=== PATIENT | female | born 1970 | race Native Hawaiian/Other Pacific Islander ===

== ENCOUNTER 2021-08-30 03:15 | Emergency (ER) | payer OTHER ==
[~2021-08-30] VITALS: Ht 177.8 cm; Wt 133.4 kg
[2021-08-30 04:50] VITALS: BP 110/68; TEMP 97.8
== END 2021-08-30 04:50 | disposition home or self-care (01) ==
LOC: ED 03:15
DX: S61.231A Puncture wound without foreign body of left index finger without damage to nail, initial encounter (principal); W61.01XA Bitten by parrot, initial encounter; Y92.89 Other specified places as the place of occurrence of the external cause
CPT/HCPCS: 90471; 90715; 99282

== ENCOUNTER 2022-03-17 10:00 | Emergency (ER) | payer OTHER ==
[~2022-03-17] VITALS: Ht 177.8 cm; Wt 129.7 kg
[2022-03-17 11:02] LABS: PLATELET COUNT 202 K/uL (152-353)
[2022-03-17 11:08] LABS: POTASSIUM 4.2 mmol/L (3.6-5.2)
[2022-03-17 12:34] VITALS: BP 128/88; TEMP 98.4
== END 2022-03-17 12:34 | disposition home or self-care (01) ==
LOC: ED 10:00
PROVIDERS: Family Medicine
DX: J40 Bronchitis, not specified as acute or chronic (principal); K59.09 Other constipation; R10.84 Generalized abdominal pain
CPT/HCPCS: 36415; 80053; 80307; 81002; 85027; 96360; 96374; 96375; 99284; J1885; J2765

== ENCOUNTER 2022-04-06 10:47 | Emergency (ER) | payer OTHER ==
[~2022-04-06] VITALS: Ht 177.8 cm; Wt 122.5 kg
[2022-04-06 11:47] LABS: PLATELET COUNT 244 K/uL (152-353)
[2022-04-06 14:30] VITALS: BP 128/78; TEMP 98.4
== END 2022-04-06 14:30 | disposition home or self-care (01) ==
LOC: ED 10:47
PROVIDERS: Emergency Medicine Emergency Medical Services
DX: R51.9 Headache, unspecified (principal)
CPT/HCPCS: 36415; 81025; 85027; 96374; 96375; 99284; J1885; J2270; J2405

== ENCOUNTER 2022-05-04 18:33 | Emergency (ER) | payer OTHER ==
[~2022-05-04] VITALS: Ht 177.8 cm; Wt 123.4 kg
[2022-05-04 18:38] VITALS: TEMP 98.4
[2022-05-04 19:50] LABS: PLATELET COUNT 221 K/uL (152-353)
[2022-05-04 20:39] LABS: POTASSIUM 4.3 mmol/L (3.6-5.2); SODIUM 138 mmol/L (136-145)
[2022-05-04 22:00] VITALS: BP 112/83
== END 2022-05-04 22:25 | disposition home or self-care (01) ==
LOC: ED 18:33
PROVIDERS: Emergency Medicine Emergency Medical Services
DX: J20.9 Acute bronchitis, unspecified (principal); R51.9 Headache, unspecified; F17.210 Nicotine dependence, cigarettes, uncomplicated
CPT/HCPCS: 36415; 80053; 84484; 85027; 93005; 94664; 96360; 96365; 96372; 99283; 99284; J0696; J1885

== ENCOUNTER 2022-06-27 11:23 | Emergency (ER) | payer OTHER ==
[~2022-06-27] VITALS: Ht 177.8 cm; Wt 118.4 kg
[2022-06-27 11:26] VITALS: BP 124/83; TEMP 98.1
== END 2022-06-27 11:58 | disposition home or self-care (01) ==
LOC: ED 11:23
DX: D17.1 Benign lipomatous neoplasm of skin and subcutaneous tissue of trunk (principal)
CPT/HCPCS: 99282

== ENCOUNTER 2022-09-30 16:23 | Emergency (ER) | payer OTHER ==
[~2022-09-30] VITALS: Ht 177.8 cm; Wt 122.5 kg
[2022-09-30 16:35] VITALS: BP 123/86; TEMP 98.4
[2022-09-30 17:20] LABS: PLATELET COUNT 240 K/uL (152-353)
[2022-09-30 17:28] LABS: POTASSIUM 4.2 mmol/L (3.6-5.2)
== END 2022-09-30 20:08 | disposition home or self-care (01) ==
LOC: ED 16:23
PROVIDERS: Emergency Medicine Emergency Medical Services
DX: K52.89 Other specified noninfective gastroenteritis and colitis (principal); E86.0 Dehydration
CPT/HCPCS: 36415; 80053; 81000; 81025; 82150; 83690; 85027; 87015; 87045; 87324; 87449; 87502; 87635; 87899; 96374; 96375; 99284; J1885; J2405; J3490; U0001